=== PATIENT | male | born 1960 | race Caucasian/White ===

== ENCOUNTER → 2018-06-21 10:00 | Outpatient (CLI) | payer MEDICARE ==
[2012-06-17 12:49] VITALS: BMI 39.2
[~2018-06-21 10:00] MED LIST: AMBIEN5 MG PO; ASCORBIC ACID500 MG PO; ASPIRIN EC81 MG PO; GLUCOPHAGE500 MG PO; LIPITOR40 MG PO; LISINOPRIL5 MG PO; LOPRESSOR25 MG PO; MAXZIDE-25 MG T1 TAB PO; MELATONIN 10 M1 EACH PO; MULTIPLE VITAMI1 TA1 PO; NEURONTIN 300300 MG PO; NORCO 10/325 TA1 TA1 PO; PAXIL20 MG PO; PREVACID30 MG PO; ZYRTEC10 MG PO
== END | disposition home or self-care (01) ==
LOC: D.HCCARDIO 10:00
PROVIDERS: ATTEND Internal Medicine Cardiovascular Disease
DX: I25.10 Atherosclerotic heart disease of native coronary artery without angina pectoris (principal)

== ENCOUNTER 2018-07-18 11:27 | Outpatient (CLI) | payer MEDICARE ==
[~2018-07-18] VITALS: Ht 172.7 cm; Wt 120.5 kg
--- NOTE | ~2018-07-18 | HEMODYNAMI ---
PATIENT:KAT PARKS MEDICAL RECORD: [id number] : 56 LOCATION:[facility] ADMISSION DATE: 07/18/18 Generatedon:07/18/201813:32 Patient name: KAT PARKS Patient #: [id number] SSN: : 1960 Date of study: 07/18/2018 Page: Of Hemodynamic Procedure Report Patient Data Patient Demographics Procedure consent was obtained First Name: KAT Gender: Male Last Name: KASEY : 1960 [facility] Initial: PAULINE Age: 57 year(s) Patient #: [id number] Race: Unknown Additional ID: [id number] Contact details Address: [address] [place] [address] State: [place] City: [place] Zip code: [address] Past Medical History Allergies: No known allergies Admission Admission Data Admission Date: 07/18/2018 Admission Time: 11:27 Procedure Procedure Types Cath Procedure Diagnostic Procedure LHC LHC w/Coronaries w/Grafts Sedation Charges Moderate Sedation up to 15 minutes Procedure Description Procedure Date Procedure Date: 07/18/2018 Procedure Start Time: 13:03 Procedure End Time: 13:29 Procedure Staff Name Function Vincent Rhodes MD Performing Physician Rach Pretty RT Monitor Efren Jean RT Scrub Chad Villarreal RT Crate Tier Lana Judge RN Nurse Procedure Data Cath Procedure Fluoroscopy Diagnostic fluoroscopy Total fluoroscopy Time: 3.9 time: 3.9 min min Diagnostic fluoroscopy Total fluoroscopy dose: dose: 1097 mGy 1097 mGy Contrast Material Contrast Material Type Amount (ml) Isovue 370 121 Entry Location Entry Primary Successful Side Size Upsize Upsize Entry Closure Succes sful Closure Location (Fr) 1 (Fr) 2 (Fr) Remarks Device Remarks Femoral Right 5 Fr Exoseal artery Estimated blood loss: 10 ml Diagnostic catheters Device Type Used For End Catheter Placement MULTIPACK JL 4.0 5Fr Procedure catheter DIAGNOSTIC AR MOD 5Fr Procedure Catheter ([id number]) DIAGNOSTIC IM 5Fr Procedure catheter ([id number]) MULTIPACK JL 4.0 5Fr Procedure catheter MULTIPACK Pigtail 5 Fr Procedure catheter Procedure Complications No complications Procedure Medications Medication Administration Route Dosage Oxygen etCO2 Nasal cannula 2 l/min Lidocaine 2% added to field 20 Heparin Flush Bag added to field 2 bags (1000units/500ml NS) 0.9% NaCl I.V. 100 ml/hr Versed I.V. 2 mg Fentanyl I.V. 100 mcg Versed I.V. 1 mg Fentanyl I.V. 50 mcg Versed I.V. 1 mg Fentanyl I.V. 50 mcg Versed I.V. 1 mg Versed I.V. 1 mg Hemodynamics Rest Heart Rate: 85 (bpm) Pressure Samples Time Site Value (mmHg) Purpose Heart Use Rate(bpm) 13:22 LV 116/-2,11 Snapshot 85 13:23 AO 135/61(93) Pullback 90 13:23 LV 137/-2,16 Pullback 90 Gradients Valve Time Site 1 Site 2 Mean SEP/DFP Peak To Heart Use (mmHg) (sec/min) Peak Rate (mmHg) (bpm) Aortic 13:23 LV AO 6 24 2 90 137/-2,16 135/61(93) Calculations Valve P-P Mean Valve Index Valve Source Name Gradient Area Flow (cm2) Aortic 2 6 2 6 Snapshots Pre Cath Intra NCS Post Cath Vital Signs Time Heart Resp SPO2 etCO2 NIBP (mmHg) Rhythm Pain Sedation Rate (ipm) (%) (mmHg) Status Level (bpm) 12:52:07 89 14 100 19.4 139/79(110) NSR 0 (11) 10(A) , No pain 12:56:27 83 12 100 40.4 127/71(114) NSR 0 (11) 10(A) , No pain 13:00:51 78 17 99 35.1 113/70(90) NSR 0 (11) 10(A) , No pain 13:05:11 77 17 94 17.9 112/63(88) NSR 0 (11) 10(A) , No pain 13:09:27 76 11 93 32.1 111/69(95) NSR 0 (11) 9(A) , No pain 13:13:45 84 22 95 41.9 122/64(103) NSR 0 (11) 9(A) , No pain 13:18:05 82 15 94 35.9 115/68(94) NSR 0 (11) 9(A) , No pain 13:22:25 85 13 97 33.6 119/66(97) NSR 0 (11) 10(A) , No pain 13:26:48 86 12 99 29.1 122/62(100) NSR 0 (11) 10(A) , No pain Medications Time Medication Route Dose Verified Delivered Reason Notes Eff ectiveness by by 12:55:37 Oxygen etCO2 2 Vincent Buffie used for Nasal l/min Carmelo Judge RN procedure cannula 12:55:45 Lidocaine 2% added 20ml Vincent Vincent for local to vial Carmelo Rhodes MD anesthetic field 12:55:53 Heparin Flush added 2 Vincent Vincent used for Bag to bags Carmelo Rhodes MD procedure (1000units/500ml field NS) 12:56:07 0.9% NaCl I.V. 100 Vincent Buffie Per ml/hr Carmelo Judge RN physician 13:00:22 Versed I.V. 2 mg Vincent Buffie for Carmelo Judge RN sedation 13:00:28 Fentanyl I.V. 100 Vincent Buffie for mcg Carmelo Judge RN sedation 13:06:33 Versed I.V. 1 mg Vincent Buffie for Carmelo Judge RN sedation 13:06:38 Fentanyl I.V. 50 Vincent Buffie for mcg Carmelo Judge RN sedation 13:10:59 Versed I.V. 1 mg Vincent Buffie for Carmelo Judge RN sedation 13:11:03 Fentanyl I.V. 50 Vincent Buffie for mcg Carmelo Judge RN sedation 13:18:32 Versed I.V. 1 mg Vincent Buffie for Carmelo Judge RN sedation 13:21:11 Versed I.V. 1 mg Vincent Buffie for Carmelo Judge RN sedation Procedure Log Time Note 12:35:50 Signed procedure consent form obtained from patient. 12:35:57 Diagnostic Cath status Elective 12:35:58 Time tracking: Regular hours (M-F 7:00 - 5:00) 12:36:02 Plan of Care:Hemodynamics will remain stable., Cardiac rhythm will remain stable., Comfort level will be maintained., Respiratory function will remain adequate., Patient/ family verbilizes understanding of procedure., Procedure tolerated without complication., Recovers from procedure without complications.. 12:38:22 Chad Villarreal RT(R) sent for patient. Start room use. 12:40:17 Patient received from Pre/Post Procedure Room to CCL 1 Alert and oriented. Tansferred to table in Supine position. 12:40:19 Warm blankets applied, and corrie hugger turned on for patient comfort. 12:40:19 Correct patient and procedure confirmed by team. 12:40:20 ECG and BP/O2 sat monitors applied to patient. 12:50:51 Vital chart was started 12:50:53 Baseline sample Acquired. 12:50:58 Rhythm: sinus rhythm 12:51:04 Full Disclosure recording started 12:51:14 H&P Date Dictated: 07/18/2018 Within 30 days and on chart., H&P Addendum completed by physician on day of procedure. (MUST COMPLETE FOR ALL OUTPATIENTS). 12:51:14 Pre-procedure instructions explained to patient. 12:51:17 Pre-op teaching completed and patient verbalized understanding. 12:51:20 Family in patients room. 12:51:22 Patient NPO since Midnight. 12:51:26 Patient allergic to No known allergies 12:51:28 Is patient on blood thinner?No 12:51:32 Patient diabetic? Yes. 12:51:34 If diabetic: On Metformin? Yes 12:51:35 If on Metformin: Last Dose? 07/17/2018 12:51:45 Previous problem with sedation/anesthesia? No ? 12:51:46 Snore? Yes 12:51:47 Sleep apnea? No 12:51:56 Opens mouth fully? Yes 12:51:56 Deviated septum? Yes 12:51:58 Sticks out tongue? Yes 12:51:59 Airway obstruction? No ? 12:52:04 Dentures? Yes UPPER PARTIAL 12:52:07 Pre procedure: right dorsailis pedis pulse 1+ Palpable, but thready & weak; easily obliterated 12:52:09 Patient pain scale 0/10 ?. 12:52:17 IV patent on arrival in right wrist with 0.9% NaCl at O. 12:52:22 Right groin area was prepped with chlora-prep and draped in sterile fashion 12:52:22 Alarms reviewed by R. N. 12:52:23 Sharps counted by scrub and verified by R.N. 12:52:25 Use device set Femoral Dx 12:52:26 ACIST Syringe (84101) opened to sterile field. 12:52:26 Bag Decanter (2002S) opened to sterile field. 12:52:27 ACIST Hand Control (84710) opened to sterile field. 12:52:28 ACIST Manifold (69342) opened to sterile field. 12:52:28 Tegaderm 4 x 4 (1626W) opened to sterile field. 12:52:29 Medline Cath Pack ([id number]) opened to sterile field. 12:52:29 DIAGNOSTIC WIRE .035 260cm J wire (045386) opened to sterile field. 12:52:30 DIAGNOSTIC Multipack 5Fr catheter set ([id number]) opened to sterile field. 12:52:31 SHEATH 5FR [place] ([id number]) opened to sterile field. 12:54:37 Procedure type changed to Cath procedure, Diagnostic procedure, LHC, LHC w/Coronaries w/Grafts, Sedation Charges, Moderate Sedation up to 15 minutes 12:55:37 Oxygen 2 l/min etCO2 Nasal cannula was administered by Lana Judge RN; used for procedure; 12:55:45 Lidocaine 2% 20ml vial added to field was administered by Vincent Rhodes MD; for local anesthetic; 12:55:53 Heparin Flush Bag (1000units/500ml NS) 2 bags added to field was administered by Vincent Rhodes MD; used for procedure; 12:56:07 0.9% NaCl 100 ml/hr I.V. was administered by Lana Judge RN; Per physician; 12:58:40 Zero performed for pressure channel P1 12:59:46 --------ALL STOP TIME OUT------ 12:59:47 Final Timeout: patient, procedure, and site verified with staff and physician. All members of the team are in agreement. 12:59:48 Right groin site verified by team. 12:59:52 Maximum allowable Isovue 300 dose 300ml. Physician notified. (300ml for normal creatinines. For patients with creatinine of 1.7 or higher multiply weight(kg) x 5 divided by creatinine.) 12:59:56 Fire Safety Assessment: A--An alcohol-based skin anteseptic being used preoperatively., C--Open oxygen or nitrous oxide is being used., D--An ESU, laser, or fiber-optic light is being used. 12:59:59 Physical assessment completed. ASA score P 2 - A patient with mild systemic disease as per Vincent Rhodes MD. 13:00:01 Sedation plan: IV Moderate Sedation Medication:Versed, Fentanyl 13:00:22 Versed 2 mg I.V. was administered by Lana Judge RN; for sedation; 13:00:28 Fentanyl 100 mcg I.V. was administered by Lana Judge RN; for sedation; 13:03:02 Procedure started. 13:03:07 Local anesthetic to right femoral artery with Lidocaine 2% by Vincent Rhodes MD.INITIAL ACCESS ONLY 13:06:33 Versed 1 mg I.V. was administered by Lana Judge RN; for sedation; 13:06:38 Fentanyl 50 mcg I.V. was administered by Lana Judge RN; for sedation; 13:10:32 A 5 Fr sheath was inserted into the Right Femoral artery 13:10:50 A MULTIPACK JL 4.0 5Fr catheter was advanced over the wire and used for Procedure. 13:10:59 Versed 1 mg I.V. was administered by Lana Judge RN; for sedation; 13:11:03 Fentanyl 50 mcg I.V. was administered by Lana Judge RN; for sedation; 13:12:03 LCA angiography performed. 13:12:40 Catheter exchanged over wire. 13:13:48 A DIAGNOSTIC AR MOD 5Fr Catheter ([id number]) was advanced over the wire and used for Procedure. 13:14:01 RCA angiography performed. 13:15:30 SVG to RCA angiography performed. 13:16:12 Catheter exchanged over wire. 13:18:03 A DIAGNOSTIC IM 5Fr catheter ([id number]) was advanced over the wire and used for Procedure. 13:18:32 Versed 1 mg I.V. was administered by Lana Judge RN; for sedation; 13:18:59 SHARP to LAD angiography performed. 13:19:04 Catheter exchanged over wire. 13:20:33 A MULTIPACK JL 4.0 5Fr catheter was advanced over the wire and used for Procedure. 13:21:11 Versed 1 mg I.V. was administered by Lana Judge RN; for sedation; 13:21:21 LCA angiography performed. 13:21:22 Catheter exchanged over wire. 13:22:13 A MULTIPACK Pigtail 5 Fr catheter was advanced over the wire and used for Procedure. 13:22:36 LV gram done using DOMINIQUE 13::39 Injector settings: Ml/sec: 10, Volume: 20, 13:22:42 LV hemodynamics recorded. 13:22:48 EF : 55 % 13:23:21 Aortic Root visualized 13:27:06 Catheter removed. 13:27:11 EXOSEAL 5Fr (EX500) opened to sterile field. 13:27:44 Sheath removed intact; hemostasis achieved with Exoseal to the Right Femoral artery. 13:27:46 Procedure ended.(Physican Out) 13:27:59 Fluoroscopy time 03.90 minutes. 13:28:04 Fluoroscopy dose: 1097 mGy 13:28:04 Flurop Dose total: 1097 13:28:17 Contrast amount:Isovue 370 121ml. 13:28:18 Sharps counted by scrub and verified by R.N. 13:28:20 Post-op/insertion site Right Femoral artery dressed using a 4 x 4 and Tegaderm. 13:28:23 Post-procedure physical assessment completed. ASA score P 2 - A patient with mild systemic disease as per Vincent Rhodes MD. 13:28:25 Post procedure rhythm: unchanged. 13:28:27 Estimated blood loss: 10 ml 13:28:29 Post procedure instruction explained to patient.Patient verbalizes understanding. 13:28:29 Patient needs reinforcement of post procedure teaching. 13:29:30 Procedure and supply charges have been captured, reviewed, submitted and are correct. 13:29:30 Vital chart was stopped 13:29:33 Procedure Complication : No complications 13:29:35 See physician's report for complete and final results. 13:29:37 Report given to Pre/Post Procedure Room. 13:29:39 Patient transfered to Pre/Post Procedure Room with Bed. 13:29:41 Procedure ended. 13:29:41 Full Disclosure recording stopped 13:29:44 End room use (Document Last) Device Usage Item Name Manufacture Quantity Catalog Hospital Part Current Minimal L ot# / Number Charge Number Stock Stock Serial# Code ACIST Acist 1 00123 620433 352240 184358 20 Yek Mobile (14350) [employer] Bag Microtek 1 2001S 918394 78522 030606 5 Decanter [employer] Inc[employer] (2001S) ACIST Hand Acist 1 78114 167505 859209 723620 5 Control Medical (11940) Systems Inc ACIST Acist 1 95408 924043 615985 241278 5 Manifold Medical (57514) Systems Inc Tegaderm 4 3M 1 1626W 147180 845277 959260 5 x 4 (1626W) Medline Medline 1 [id number] 484081 92997 193647 5 Cath Pack ([id number]) DIAGNOSTIC [facility] [place] 1 308283 723194 418128 778750 30 WIRE .035 260cm J wire (241432) DIAGNOSTIC Cardinal 1 [id number] 376546 76580 026936 30 [employer] 5Fr catheter set (YA8494) SHEATH 5FR Terumo 1 TWQ284 247672 576704 783933 5 [place] (VSG230) MULTIPACK Cardinal 1 672675 5 JL 4.0 5Fr Health catheter DIAGNOSTIC Cardinal 1 [id number] 896640 888495 458685 15 AR MOD 5Fr Health Catheter (199006R) DIAGNOSTIC Cardinal 1 [id number] 958731 030146 825093 5 IM 5Fr Health catheter ([id number]) MULTIPACK Cardinal 1 895449 5 Pigtail 5 Health Fr catheter EXOSEAL 5Fr Cardinal 1 EX500 019386 657448 053741 10 (EX500) Health Signature Audit [place] Stage Time Signature Unsigned Intra-Procedure 07/18/2018 Rach Pretty 1:32:04 PM RT(R) Signatures Monitor : Rach Pretty Signature : RT Date : Time : [facility] [address], [place] [address]
[2018-07-18] MEDS ORDERED: OMEPRAZOLE40 MG PO (11:40)
[2018-07-18] MEDS ORDERED: DEPAKOTE250 MG PO (11:41)
[2018-07-18] MEDS ORDERED: CILOSTAZOL50 MG PO (11:43)
[2018-07-18] MEDS ORDERED: CARAFATE1 G PO (11:45)
[2018-07-18] MEDS ORDERED: ULTRAM50 MG PO (11:46)
[2018-07-18] MEDS ORDERED: VITAMIN D2000 UNIT PO (11:47)
[2018-07-18] MEDS ORDERED: VITAMIN B-122500 MCG PO (11:48)
[2018-07-18] MEDS ORDERED: MUCINEX600 MG PO (11:50)
[2018-07-18] MEDS ORDERED: CHANTIX 1 MG TAB1 MG PO (11:50)
[2018-07-18 12:02] VITALS: BP 148/74; Ht 172.7 cm; Wt 120.5 kg
[2018-07-18 12:28] LABS: BASOPHILS 0.2 % (0-2); EOSINOPHILS 0.8 % (0-7); HEMATOCRIT 40.2 % (42.0-54.0); HEMOGLOBIN 13.8 g/dL (13.5-17.5); IMMATURE GRANULOCYTES 0.2 % (0-5); LYMPHOCYTES 23.5 % (15-50); MCH 31.5 pg (26.0-34.0); MCHC 34.3 g/dL (31.0-37.0); MCV 91.8 fL (80.0-100.0); MEAN PLATELET VOLUME 10.4 fL (7.4-10.4); MONOCYTES 7.7 % (2-11); NEUTROPHILS 67.6 % (40-80); PLATELET COUNT 214 10x3/uL (130-400); RBC 4.38 10x6/uL (4.20-6.10); WBC 9.3 10x3/uL (4.8-10.8)
[2018-07-18 12:34] LABS: CALC OSMOLALITY 278 mosm/kg (275-300); CARBON DIOXIDE 26.5 mmol/L (21.0-32.0); CHLORIDE - SERUM 102 mmol/L (98-107); CREATININE - SERUM 0.8 mg/dL (0.6-1.3); GLUCOSE 116 mg/dL (74-106); SODIUM 139 mmol/L (136-145); UREA NITROGEN 13 mg/dL (7-18); eGFR NON AFRICAN AMERICAN > 90 mL/min (90-120)
[2018-07-18 12:36] LABS: POTASSIUM - SERUM 4.6 mmol/L (3.5-5.1)
--- NOTE | 2018-07-18 13:42 | NUR ---
PT ARRIVED BY STRETCHER. PLACED ON MONITORS. VSS. PT INSTRUCTED TO KEEP HEAD FLAT ON PILLOW AND RIGHT LEG STRAIGHT. FAMILY AT BEDSIDE. PT VOIDED IN URINAL APPROX 450CC OF CLEAR YELLOW URINE.
[2018-07-18] MEDS ORDERED: ISOSORBIDE MONO30 M1 PO (13:49)
--- NOTE | 2018-07-18 13:58 | NUR ---
PT RESTING COMFORTABLY. RIGHT GROIN DRESSING C/D/I. NO S/S OF HEMATOMA NOTED. VSS. FAMILY AT BEDSIDE.
--- NOTE | 2018-07-18 14:25 | NUR ---
ASSUMING CARE OF PATIENT. PATIENT INTERMITTENTLY RESTING, VSS ON 1L NC. RIGHT GROIN DRESSING IS CDI, NO S/S OF BLEEDING OR HEMATOMA. NO C/O PAIN, NUMBNESS, OR TINGLING. NO N/V.
--- NOTE | 2018-07-18 14:45 | NUR ---
HEAD OF BED ELEVATED TO 30 DEGREES, RIGHT GROIN DRESSING IS CDI, NO S/S OF BLEEDING OR HEMATOMA. NO C/O PAIN, NUMNBESS, OR TINGLING. VSS ON ROOM AIR. PATIENT GIVEN SANDWICH AND SODA, NO N/V.
--- NOTE | 2018-07-18 15:15 | NUR ---
HEAD OF BED ELEVATED TO 90 DEGREES. RIGHT GROIN DRESSING IS CDI, NO S/S OF BLEEDING OR HEMATOMA. IV REMOVED. WRITTEN AND VERBAL EDUCATION REGARDING DISCHARGE INSTRUCTIONS AND MEDICATION COMPLIANCE GIVEN TO PATIENT AND SPOUSE, BOTH VOICE UNDERSTANDING. VSS ON ROOM AIR. NO C/O PAIN, NUMBNESS, OR TINGLING. NO N/V.
--- NOTE | 2018-07-18 15:40 | NUR ---
PATIENT TRANSPORTED VIA WHEELCHAIR TO CAR WITH SPOUSE DRIVING, ALL BELONGINGS WITH PATIENT.
== END 2018-07-18 15:40 ==
LOC: D.CATH 11:27
PROVIDERS: ATTEND Internal Medicine Cardiovascular Disease
DX: I25.119 Atherosclerotic heart disease of native coronary artery with unspecified angina pectoris (principal); I25.719 Atherosclerosis of autologous vein coronary artery bypass graft(s) with unspecified angina pectoris; Z01.812 Encounter for preprocedural laboratory examination

== ENCOUNTER → 2020-04-26 09:32 | Outpatient (CLI) | payer MEDICARE ==
[2018-07-18 12:02] VITALS: BMI 40.3
[~2020-04-26 09:32] MED LIST changes: +CARAFATE1 G PO; +CHANTIX 1 MG TAB1 MG PO; +CILOSTAZOL50 MG PO; +DEPAKOTE250 MG PO; +ISOSORBIDE MONO30 M1 PO; +MUCINEX600 MG PO; +OMEPRAZOLE40 MG PO; +ULTRAM50 MG PO; +VITAMIN B-122500 MCG PO; +VITAMIN D2000 UNIT PO
== END | disposition home or self-care (01) ==
LOC: D.HCCECHO 09:32
PROVIDERS: ATTEND Internal Medicine Cardiovascular Disease
DX: I25.10 Atherosclerotic heart disease of native coronary artery without angina pectoris (principal)